=== PATIENT | male | born 1975 | race American Indian/Alaskan Native ===

== ENCOUNTER 2016-06-27 11:30 | Outpatient (CLI) | payer OTHER ==
[2016-06-27] MEDS ORDERED: XYLOCAINE TOPICAL 2% ONE (12:04)
[2016-06-27] MEDS ORDERED: XYLOCAINE TOPICAL 2% TP ONE (12:49)
== END 2016-06-27 11:31 | disposition home or self-care (01) ==
LOC: WOUND 11:30
PROVIDERS: ATTEND Podiatrist
DX: I87.312 Chronic venous hypertension (idiopathic) with ulcer of left lower extremity (principal); L97.822 Non-pressure chronic ulcer of other part of left lower leg with fat layer exposed; G62.9 Polyneuropathy, unspecified
CPT/HCPCS: 11042; 87075; 87076; 87116; 87186; G0463; 99205

== ENCOUNTER 2016-07-15 09:31 | Outpatient (CLI) | payer OTHER ==
[2016-07-15] MEDS ORDERED: XYLOCAINE TOPICAL 4% TP ONE ×2 (09:55→14:29)
== END 2016-07-15 09:32 | disposition home or self-care (01) ==
LOC: WOUND 09:31
PROVIDERS: ATTEND Podiatrist
DX: I87.312 Chronic venous hypertension (idiopathic) with ulcer of left lower extremity (principal); L97.321 Non-pressure chronic ulcer of left ankle limited to breakdown of skin; L97.821 Non-pressure chronic ulcer of other part of left lower leg limited to breakdown of skin; R60.9 Edema, unspecified; L03.116 Cellulitis of left lower limb

== ENCOUNTER 2016-07-25 10:48 | Outpatient (CLI) | payer OTHER ==
[2016-07-25] MEDS ORDERED: XYLOCAINE TOPICAL 4% TP ONE ×2 (11:29→15:00)
== END 2016-07-25 10:49 | disposition home or self-care (01) ==
LOC: WOUND 10:48
PROVIDERS: ATTEND Podiatrist
DX: I87.2 Venous insufficiency (chronic) (peripheral) (principal); L97.822 Non-pressure chronic ulcer of other part of left lower leg with fat layer exposed; L97.321 Non-pressure chronic ulcer of left ankle limited to breakdown of skin; Z85.79 Personal history of other malignant neoplasms of lymphoid, hematopoietic and related tissues
CPT/HCPCS: 29581

== ENCOUNTER 2016-08-01 08:32 | Outpatient (CLI) | payer OTHER ==
[2016-08-01] MEDS ORDERED: XYLOCAINE TOPICAL 4% TP ONE (11:00)
== END 2016-08-01 08:33 | disposition home or self-care (01) ==
LOC: WOUND 08:32
PROVIDERS: ATTEND Podiatrist
DX: I87.312 Chronic venous hypertension (idiopathic) with ulcer of left lower extremity (principal); L97.822 Non-pressure chronic ulcer of other part of left lower leg with fat layer exposed; R60.9 Edema, unspecified; G62.9 Polyneuropathy, unspecified; Z94.84 Stem cells transplant status

== ENCOUNTER 2016-08-06 13:57 | Outpatient (CLI) | payer OTHER | END 2016-08-06 13:58 | disposition home or self-care (01) | LOC: WOUND 13:57 | PROVIDERS: ATTEND Surgery | DX: I87.312 Chronic venous hypertension (idiopathic) with ulcer of left lower extremity (principal); L97.822 Non-pressure chronic ulcer of other part of left lower leg with fat layer exposed; Z94.84 Stem cells transplant status | CPT/HCPCS: 99214; G0463 ==

== ENCOUNTER 2016-08-08 10:08 | Outpatient (CLI) | payer OTHER ==
[2016-08-08] MEDS ORDERED: XYLOCAINE TOPICAL 4% TP ONE ×2 (10:37→13:23)
[2016-08-08] MEDS ORDERED: AD OINTMENT TP ONE (11:26)
[2016-08-08] MEDS ORDERED: AD OINTMENT TP PRN (13:23)
== END 2016-08-08 10:09 | disposition home or self-care (01) ==
LOC: WOUND 10:08
PROVIDERS: ATTEND Podiatrist
DX: I87.312 Chronic venous hypertension (idiopathic) with ulcer of left lower extremity (principal); L97.821 Non-pressure chronic ulcer of other part of left lower leg limited to breakdown of skin; E11.40 Type 2 diabetes mellitus with diabetic neuropathy, unspecified; Z94.84 Stem cells transplant status
CPT/HCPCS: 29581; A6250

== ENCOUNTER 2016-08-12 13:27 | Outpatient (CLI) | payer OTHER | END 2016-08-12 13:28 | disposition home or self-care (01) | LOC: WOUND 13:27 | PROVIDERS: ATTEND Surgery | DX: I87.312 Chronic venous hypertension (idiopathic) with ulcer of left lower extremity (principal); L97.822 Non-pressure chronic ulcer of other part of left lower leg with fat layer exposed; Z94.84 Stem cells transplant status | CPT/HCPCS: 29581 ==

== ENCOUNTER 2016-08-15 10:15 | Outpatient (CLI) | payer OTHER ==
[2016-08-15] MEDS ORDERED: XYLOCAINE TOPICAL 4% TP ONE (10:46)
== END 2016-08-15 10:16 | disposition home or self-care (01) ==
LOC: WOUND 10:15
PROVIDERS: ATTEND Podiatrist
DX: I87.312 Chronic venous hypertension (idiopathic) with ulcer of left lower extremity (principal); L97.822 Non-pressure chronic ulcer of other part of left lower leg with fat layer exposed; G62.9 Polyneuropathy, unspecified; Z94.84 Stem cells transplant status
CPT/HCPCS: 29581

== ENCOUNTER 2016-08-20 08:46 | Outpatient (CLI) | payer OTHER ==
[2016-08-20] MEDS ORDERED: XYLOCAINE TOPICAL 4% TP ONE ×2 (08:59→09:05)
== END 2016-08-20 08:47 | disposition home or self-care (01) ==
LOC: WOUND 08:46
PROVIDERS: ATTEND Surgery
DX: I87.312 Chronic venous hypertension (idiopathic) with ulcer of left lower extremity (principal); L97.822 Non-pressure chronic ulcer of other part of left lower leg with fat layer exposed; Z94.84 Stem cells transplant status
CPT/HCPCS: 29581

== ENCOUNTER 2016-08-22 12:10 | Outpatient (CLI) | payer OTHER | END 2016-08-22 12:11 | disposition home or self-care (01) | LOC: WOUND 12:10 | PROVIDERS: ATTEND Podiatrist | DX: I87.312 Chronic venous hypertension (idiopathic) with ulcer of left lower extremity (principal); L97.822 Non-pressure chronic ulcer of other part of left lower leg with fat layer exposed; Z94.84 Stem cells transplant status | CPT/HCPCS: 29581 ==

== ENCOUNTER 2016-08-26 09:23 | Outpatient (CLI) | payer OTHER | END 2016-08-26 09:24 | disposition home or self-care (01) | LOC: WOUND 09:23 | PROVIDERS: ATTEND Surgery | DX: I87.312 Chronic venous hypertension (idiopathic) with ulcer of left lower extremity (principal); L97.822 Non-pressure chronic ulcer of other part of left lower leg with fat layer exposed; Z94.84 Stem cells transplant status | CPT/HCPCS: 29581; G0463; 99211 ==

== ENCOUNTER 2016-08-29 09:17 | Outpatient (CLI) | payer OTHER ==
[2016-08-29] MEDS ORDERED: XYLOCAINE TOPICAL 4% TP ONE (09:45)
== END 2016-08-29 09:18 | disposition home or self-care (01) ==
LOC: WOUND 09:17
PROVIDERS: ATTEND Podiatrist
DX: I87.312 Chronic venous hypertension (idiopathic) with ulcer of left lower extremity (principal); L97.822 Non-pressure chronic ulcer of other part of left lower leg with fat layer exposed; G62.9 Polyneuropathy, unspecified; Z94.84 Stem cells transplant status
CPT/HCPCS: 29581

== ENCOUNTER 2016-09-02 11:44 | Outpatient (CLI) | payer OTHER | END 2016-09-02 11:45 | disposition home or self-care (01) | LOC: WOUND 11:44 | PROVIDERS: ATTEND Surgery | DX: I87.312 Chronic venous hypertension (idiopathic) with ulcer of left lower extremity (principal); L97.822 Non-pressure chronic ulcer of other part of left lower leg with fat layer exposed; Z94.84 Stem cells transplant status | CPT/HCPCS: 97597 ==

== ENCOUNTER 2016-09-05 09:06 | Outpatient (CLI) | payer OTHER ==
[2016-09-05] MEDS ORDERED: AD OINTMENT TP SCH (10:00)
[2016-09-05] MEDS ORDERED: XYLOCAINE TOPICAL 4% TP ONE (11:00)
== END 2016-09-05 09:07 | disposition home or self-care (01) ==
LOC: WOUND 09:06
PROVIDERS: ATTEND Podiatrist
DX: I87.312 Chronic venous hypertension (idiopathic) with ulcer of left lower extremity (principal); L97.822 Non-pressure chronic ulcer of other part of left lower leg with fat layer exposed; G62.9 Polyneuropathy, unspecified; Z94.84 Stem cells transplant status
CPT/HCPCS: 29581; A6250

== ENCOUNTER 2016-09-12 08:18 | Outpatient (CLI) | payer OTHER ==
[2016-09-12] MEDS ORDERED: XYLOCAINE TOPICAL 4% TP ONE ×2 (08:35→11:04)
== END 2016-09-12 08:19 | disposition home or self-care (01) ==
LOC: WOUND 08:18
PROVIDERS: ATTEND Podiatrist
DX: I87.312 Chronic venous hypertension (idiopathic) with ulcer of left lower extremity (principal); L97.822 Non-pressure chronic ulcer of other part of left lower leg with fat layer exposed; G62.9 Polyneuropathy, unspecified; Z94.84 Stem cells transplant status
CPT/HCPCS: 29581

== ENCOUNTER 2016-09-19 08:13 | Outpatient (CLI) | payer OTHER ==
[2016-09-19] MEDS ORDERED: XYLOCAINE TOPICAL 4% TP ONE (09:05)
[2016-09-19] MEDS ORDERED: SILVER NITRATE TP ONE ×2 (09:19→15:18)
== END 2016-09-19 08:14 | disposition home or self-care (01) ==
LOC: WOUND 08:13
PROVIDERS: ATTEND Podiatrist
DX: I87.312 Chronic venous hypertension (idiopathic) with ulcer of left lower extremity (principal); L97.822 Non-pressure chronic ulcer of other part of left lower leg with fat layer exposed; G62.9 Polyneuropathy, unspecified; Z94.84 Stem cells transplant status

== ENCOUNTER 2016-09-26 08:09 | Outpatient (CLI) | payer OTHER ==
[2016-09-26] MEDS ORDERED: XYLOCAINE TOPICAL 4% TP ONE (08:30)
== END 2016-09-26 08:10 | disposition home or self-care (01) ==
LOC: WOUND 08:09
PROVIDERS: ATTEND Podiatrist
DX: I87.312 Chronic venous hypertension (idiopathic) with ulcer of left lower extremity (principal); L97.822 Non-pressure chronic ulcer of other part of left lower leg with fat layer exposed; G62.9 Polyneuropathy, unspecified; Z94.84 Stem cells transplant status
CPT/HCPCS: 29581

== ENCOUNTER 2016-10-03 08:02 | Outpatient (CLI) | payer OTHER ==
[2016-10-03] MEDS ORDERED: XYLOCAINE TOPICAL 4% TP ONE ×2 (08:27→09:00)
== END 2016-10-03 08:03 | disposition home or self-care (01) ==
LOC: WOUND 08:02
PROVIDERS: ATTEND Podiatrist
DX: I87.312 Chronic venous hypertension (idiopathic) with ulcer of left lower extremity (principal); L97.822 Non-pressure chronic ulcer of other part of left lower leg with fat layer exposed; G62.9 Polyneuropathy, unspecified; Z94.84 Stem cells transplant status
CPT/HCPCS: 29581

== ENCOUNTER 2016-10-10 08:12 | Outpatient (CLI) | payer OTHER ==
[2016-10-10] MEDS ORDERED: XYLOCAINE TOPICAL 4% TP ONE ×2 (08:36→09:00)
== END 2016-10-10 08:13 | disposition home or self-care (01) ==
LOC: WOUND 08:12
PROVIDERS: ATTEND Podiatrist
DX: I87.312 Chronic venous hypertension (idiopathic) with ulcer of left lower extremity (principal); L97.821 Non-pressure chronic ulcer of other part of left lower leg limited to breakdown of skin; G62.9 Polyneuropathy, unspecified; Z94.84 Stem cells transplant status
CPT/HCPCS: 29581

== ENCOUNTER 2016-10-17 08:12 | Outpatient (CLI) | payer OTHER ==
[2016-10-17] MEDS ORDERED: XYLOCAINE TOPICAL 4% TP ONE (08:24)
== END 2016-10-17 08:13 | disposition home or self-care (01) ==
LOC: WOUND 08:12
PROVIDERS: ATTEND Podiatrist
DX: I87.312 Chronic venous hypertension (idiopathic) with ulcer of left lower extremity (principal); L97.822 Non-pressure chronic ulcer of other part of left lower leg with fat layer exposed; G62.9 Polyneuropathy, unspecified; Z94.84 Stem cells transplant status
CPT/HCPCS: 29581

== ENCOUNTER 2016-10-24 08:27 | Outpatient (CLI) | payer OTHER ==
[2016-10-24] MEDS ORDERED: XYLOCAINE TOPICAL 2% ONE (08:45)
[2016-10-24] MEDS ORDERED: XYLOCAINE TOPICAL 2% TP ONE (08:53)
== END 2016-10-24 08:28 | disposition home or self-care (01) ==
LOC: WOUND 08:27
PROVIDERS: ATTEND Podiatrist
DX: I87.312 Chronic venous hypertension (idiopathic) with ulcer of left lower extremity (principal); L97.822 Non-pressure chronic ulcer of other part of left lower leg with fat layer exposed; G62.9 Polyneuropathy, unspecified; Z94.84 Stem cells transplant status

== ENCOUNTER 2016-11-07 08:02 | Outpatient (CLI) | payer OTHER | END 2016-11-07 08:03 | disposition home or self-care (01) | LOC: WOUND 08:02 | PROVIDERS: ATTEND Podiatrist | DX: I87.312 Chronic venous hypertension (idiopathic) with ulcer of left lower extremity (principal); L97.822 Non-pressure chronic ulcer of other part of left lower leg with fat layer exposed; G62.9 Polyneuropathy, unspecified; Z94.84 Stem cells transplant status | CPT/HCPCS: 99213; G0463 ==